=== PATIENT | male | born 1960 | race Caucasian/White ===

== ENCOUNTER 2020-01-12 14:38 | Outpatient (CLI) | payer OTHER, SELFPAY ==
--- NOTE | 2020-01-12 | ECHO_ITS ---
Patient Info Name: Farhan Jones Age: 59 years : 1960 Gender: Male Ht: 66 in Wt: 170 lbs BSA: 1.91 m2 HR: 80 bpm BP: 111 / 74 mmHg Technical Quality: Fair Exam Date: 01/12/2020 3:05 PM Exam Location: [facility] Patient Status: Outpatient Admit Date: 01/12/2020 Staff Ordering Physician: Steven, Juni Borrego MD Automatic Gluing Machine Operator: Rema Haskins RDCS Attending Provider: Steven, Juni Borrego MD Referring Physician: Matthew, Bianka Huerta MD; Exam Type: CA echo doppler color flow Study Info Indications R06.02 - Shortness of breath I50.22 - Chronic systolic (congestive) heart failure I42.0 - Dilated cardiomyopathy Complete two-dimensional, color flow and Doppler transthoracic echocardiogram is performed. Summary 1. Left ventricular chamber dimension is severely enlarged. 2. Left ventricular systolic function is severely reduced, estimated at 30-35%. 3. Left ventricular septal wall motion is abnormal with septal motion related to bundle branch block. 4. The left ventricular diastolic function is grade II diastolic dysfunction. 5. E/e' 11 is mildly elevated. 6. Global longitudinal strain is abnormal at -8.8%. 7. Linear artifact in right ventricle suggestive of catheter(s), pacemaker lead(s), or ICD lead(s). 8. Linear artifact in the right atrium suggestive of catheter(s), pacemaker lead(s), or ICD lead(s). 9. There is trace mitral valve regurgitation. 10. No pulmonary hypertension, estimated pulmonary arterial systolic pressure is 23 mmHg. Left Ventricle E/e' 11 is mildly elevated. Global longitudinal strain is abnormal at -8.8%. Left ventricular chamber dimension is severely enlarged. Left ventricular systolic function is severely reduced, estimated at 30-35%. Left ventricular septal wall motion is abnormal with septal motion related to bundle branch block. The left ventricular diastolic function is grade II diastolic dysfunction. Right Ventricle Linear artifact in right ventricle suggestive of catheter(s), pacemaker lead(s), or ICD lead(s). Right ventricular chamber dimension is normal. Right ventricular systolic function is normal. Left Atria Left atrial chamber dimension is normal. Right Atria Linear artifact in the right atrium suggestive of catheter(s), pacemaker lead(s), or ICD lead(s). Right atrial chamber dimension is normal. Aortic Valve The aortic valve is trileaflet. There is no aortic valve stenosis. There is no aortic valve regurgitation. Pulmonic Valve There is no pulmonic regurgitation. Mitral Valve There is no mitral valve stenosis. There is trace mitral valve regurgitation. Tricuspid Valve There is no tricuspid valve regurgitation. No pulmonary hypertension, estimated pulmonary arterial systolic pressure is 23 mmHg. Pericardium/Pleural There is no pericardial effusion. Inferior Vena Cava Normal inferior vena cava with >50% collapse upon inspiration consistent with normal right atrial pressure, 5 mmHg. Aorta The aortic root size at the sinus of Valsalva is normal. Left Ventricular Outflow Tract Name Value Normal LVOT 2D LVOT Diameter 2.0 cm LVOT Doppler
--- NOTE | ~2020-01-12 | XR_ITS ---
EXAMINATION: XR shoulder RT min 2V INDICATION: Right shoulder pain TECHNIQUE: Four views of the right shoulder are submitted. COMPARISON: None FINDINGS: Normal alignment. No fracture. There is mild glenohumeral and moderate acromioclavicular brennen int osteoarthritis. Partially imaged pacemaker leads are noted. Soft tissues are unremarkable. IMPRESSION: 1. Osteoarthritis without acute osseous abnormality. Reviewed, dictated and finalized at location A.
== END 2020-01-12 14:39 | disposition home or self-care (01) ==
PROVIDERS: PCP Family Medicine; Referring Provider Family Medicine; Visit Provider Specialist
DX: I50.22 Chronic systolic (congestive) heart failure (principal); R06.02 Shortness of breath; M19.011 Primary osteoarthritis, right shoulder; I42.0 Dilated cardiomyopathy
CPT/HCPCS: 73030; 93306

== ENCOUNTER 2020-02-27 11:15 | Outpatient (RCR) | payer OTHER, SELFPAY ==
[2020-01-27 13:51] VITALS: BP_SYST 145
--- NOTE | 2020-01-27 14:52 | PTOPEVAL ---
Thank you for referring Farhan Jones to [facility]. Please review, sign, date and return this plan of care HAYLEY. Pt referred to therapy due to right shoulder pain. He demonstrates decreased shoulder range, decreased strength, increased pain and decreased performance with functional activities. He requires additional skilled therapy services to address UE impairments and improve function. Cont PT 2x/wk x 8-10 wk. I agree with and certify that the following plan of care is medically necessary. Referring Physician Date Referring Provider: DO Brian DavilaPT Outpatient Evaluation Start: 01/27/20 13:50 Freq: Status: Active Protocol: Document 01/27/20 13:51 CAP (Rec: 01/27/20 14:30 CAP [id number]) Therapy Assessment Status Assessment Status Assessment Status Evaluation Outpatient Past Medical History Past Medical History Source of Past Medical History Patient,Recalled from Previous Visit, Confirmed with Patient /Family Cardiovascular History Hx Congestive Heart Failure Yes Hx Hypertension Yes Hx Pacemaker Yes: ~3 yrs Respiratory History Hx Chronic Obstructive Pulmonary Disease Yes (COPD) Endocrine History Hx Diabetes Yes Evaluation Information Problem Diagnosis right shoulder pain Onset 2 months ago Cause catching an object Subjective Information He was lifting a water heater Query Text:As Reported By Patient/ onto the back of his truck Family when he tried to grab the heater as it was falling. He felt a pop with increased pain. Reports increased right shoulder and UE pain with reaching activities and overhead reaching motion. He perform any activities as long as it is below waist level. He is unable to lift heavy objects due to pain and weakness. He has increased pain with repeative UE activities with cooking and carpentry work. He has difficulty with repetative use of UE's when using the tools with his carpentry activities. He sleeps prone with his UE overhead, but has diffuclty sleeping due to pain. Diagnostic Tests X-Rays For This Problem
--- NOTE | 2020-02-08 10:56 | PCPTNOTE ---
Patient called & cancelled scheduled appointment this date and for 02/10/20 due to out of town.
--- NOTE | 2020-02-15 13:54 | PCPTNOTE ---
Patient did not show up for scheduled appointment this date.
--- NOTE | 2020-02-17 13:17 | PCPTNOTE ---
Patient did not show up for scheduled appointment this date.
--- NOTE | 2020-02-22 14:59 | PCPTNOTE ---
Addendum entered by Shy Shaw, CURATOR OF COLLECTIONS 02/22/20 15:11: called and spoke to patient , he stated he wasn't feeling well today, but wpould try to be here on Thursday02/24/20. Original Note: Patient did not show up for scheduled appointment this date.
--- NOTE | 2020-02-24 13:56 | PCPTNOTE ---
Patient did not show up for scheduled appointment this date.
--- NOTE | 2020-02-27 11:43 | PCPTNOTE ---
Patient did not show up for scheduled appointment this date.
--- NOTE | 2020-02-29 11:17 | PCPTNOTE ---
Patient did not show up for scheduled appointment this date.
--- NOTE | 2020-02-29 11:17 | PCPTNOTE ---
Admitting Provider: Attending Provider: PHYSICIAN NOT ON STAFF Patient:Farhan Jones Date of :1960 Patient has not returned for any further treatments since 01/27/2020, therefore he will be discharged at this time. Patient?s initial visit was on 01/27/2020 14:00 and he had a total of 1 visits. The goals have not been met due to patient did not return for a f/u visit. Thank you for referring this patient to [facility]. Please review, sign, date and return this discharge summary HAYLEY. I have been updated about the patient's current status and I agree with discharge from the above service at this time. Referring Physician Date
== END 2020-02-29 12:39 | disposition home or self-care (01) ==
LOC: ANHPT 11:15
PROVIDERS: PCP Family Medicine
DX: M25.511 Pain in right shoulder (principal)
CPT/HCPCS: 97162